=== PATIENT | male | born 1945 ===

== ENCOUNTER 2017-08-01 06:31 | Day surgery (SDC) | payer MEDICARE ==
[2016-05-11 12:51] VITALS: BMI 32.5
[2017-08-01] MEDS ORDERED: Lactated Ringer's 1,000 ML IV ONE (08:35)
[2017-08-01] MEDS ORDERED: Propofol 10 mg/ml Inj (20 ML) ONE (08:44)
[2017-08-01] MEDS ORDERED: Midazolam 2 MG/2 ML VIAL ONE (08:45)
[2017-08-01] MEDS ORDERED: Succinylcholine 200 mg/10 ml Inj IV ONE (08:45)
[2017-08-01] MEDS ORDERED: ePHEDrine 50 mg/ml Inj ONE (08:45)
[2017-08-01] MEDS ORDERED: Lidocaine 4% (Laryng-O-Jet) Kit MM ONE (08:46)
[2017-08-01] MEDS ORDERED: cefTRIAXone (Rocephin) 1 gm Inj IM ONE (09:35)
[2017-08-01] MEDS ORDERED: Dexamethasone 4 mg/1 ml ONE (09:45)
[2017-08-01] MEDS ORDERED: SODIUM CHLORIDE 3,000 ML IR ONE ×3 (10:27→11:05)
[2017-08-01] MEDS ORDERED: Lactated Ringer's 1,000 ML IV SCH (10:30)
[2017-08-01] MEDS: HYDROmorphone 0.5 mg/0.5 ml ISec IVP PRN ×2 (10:50→11:05)
[2017-08-01 12:57] VITALS: BP 151/72; PULSE 66; RESP 18; TEMP 98; O2SAT 96
--- NOTE | 2017-08-01 17:58 | OP ---
PROCEDURE DATE: 08/01/2017 PREOPERATIVE DIAGNOSIS: Benign prostatic hypertrophy. POSTOPERATIVE DIAGNOSIS: Benign prostatic hypertrophy. PROCEDURE: GreenLight laser. DESCRIPTION OF PROCEDURE: Patient was placed on the operating room table in a dorsal lithotomy position. The area of the groin was draped and prepped in the sterile manner. Using a laser apparatus, we entered into the bladder atraumatically, identified the distal margins of the resection, and with the laser identified those areas and I began to resect the middle lobe followed by the left and right lateral lobes. Periodically during the case, viewed the prostate as it was opening. At the end of the procedure, ureteral orifices were re-identified, seen clearly. Verumontanum was circumferentially intact. I inserted a #22 three-way Cohen catheter. CBI was begun with some mild hematuria only at the end of the case. Patient then was taken from the operating room in good condition. Estimated blood loss to be less than 20 mL. Ben Amin MD
== END 2017-08-01 13:12 | disposition home or self-care (01) ==
LOC: H.OPSURG 06:31
PROVIDERS: ATTEND Urology
DX: C61 Malignant neoplasm of prostate (principal); E78.5 Hyperlipidemia, unspecified; I10 Essential (primary) hypertension; E66.9 Obesity, unspecified
CPT/HCPCS: 52648; J0330; J0696; J1100; J1170; J2001; J2250; J2405; J2704; J3010; J7120